=== PATIENT | female | born 1960 | race Asian ===

== ENCOUNTER → 2017-07-22 | Outpatient (CLI) | payer MEDICAID ==
[~2017-07-22] MED LIST: AMIO200T42 PO; ASPI-496 PO; FURO20TA3 PO; FURO40TA6 PO; GLIM4TAB2 PO; LISI-167; LISI40TA PO; LOVA20TA2 PO; MELO7.5T31 PO; METF10002; METF10002 PO; METO25TA35 PO; METO50TA82 PO; POTA10TA31 PO; POTA20TA6 PO; SERT100T5 PO; TRIA15CR3 TP; WARF5TAB7 PO; [UNRECOGNIZED DRUG - OTHER]
== END ==
LOC: CFH 12:58
PROVIDERS: ATTEND Internal Medicine Cardiovascular Disease
DX: E03.9 Hypothyroidism, unspecified (principal); E78.2 Mixed hyperlipidemia; I10 Essential (primary) hypertension; Z79.01 Long term (current) use of anticoagulants
CPT/HCPCS: 71046